=== PATIENT | male | born 1945 ===

== ENCOUNTER 2021-12-01 13:40 | Emergency (ER) | payer MEDICARE, OTHER ==
[2021-12-01] MEDS ORDERED: Lidocaine 1% 30 ML SDV INJECT ONE (14:08)
[2021-12-01] MEDS ORDERED: Bacitracin Oint 1 GM U/D Packet TOP ONE (14:08)
[2021-12-01] MEDS ORDERED: Cephalexin 500 MG Cap PO ONE (15:07)
[2021-12-01] MEDS ORDERED: Acetaminophen 325 MG Tab PO ONE (15:07)
== END 2021-12-01 15:05 | disposition home or self-care (01) ==
LOC: DL.ED 13:40
DX: S81.811A Laceration without foreign body, right lower leg, initial encounter (principal); W26.8XXA Contact with other sharp object(s), not elsewhere classified, initial encounter
CPT/HCPCS: 12004; 99282; A9270